=== PATIENT | male | born 1990 | race Hispanic/Latino ===

== ENCOUNTER 2017-07-27 13:02 | Emergency (ER) | payer SELFPAY ==
[2017-07-27] MEDS ORDERED: ORPHENADRINE CITRATE 30 MG/ML ML ONE (13:32)
[2017-07-27] MEDS ORDERED: KETOROLAC TROMETHAMINE 30MG/ML ONE (13:32)
[2017-07-27] MEDS ORDERED: DEXAMETHASONE SOD PHOSPHATE 10MG/ML 1ML VIAL ONE (13:32)
== END 2017-07-27 14:48 | disposition home or self-care (01) ==
LOC: EDH 13:02
DX: M54.5 Low back pain (principal); Z72.0 Tobacco use
CPT/HCPCS: 96372 ×3; 99284; J1100; J1885; J2360

== ENCOUNTER 2018-04-26 00:15 | Emergency (ER) | payer SELFPAY ==
[2018-04-26] MEDS ORDERED: KETOROLAC TROMETHAMINE 60 MG/2 ML VIAL ONE (01:52)
[2018-04-26] MEDS ORDERED: DEXAMETHASONE SOD PHOSPHATE 10MG/ML 1ML VIAL ONE (01:52)
== END 2018-04-26 02:13 | disposition home or self-care (01) ==
LOC: EDH 00:15
DX: M77.11 Lateral epicondylitis, right elbow (principal)
CPT/HCPCS: 96372 ×2; 99283; J1100; J1885

== ENCOUNTER 2018-12-20 10:57 | Emergency (ER) | payer OTHER ==
[2018-12-20] MEDS ORDERED: SODIUM CHLORIDE 0.9% 1000ML 1,000 ML IV ONE ×2 (11:30→12:16)
[2018-12-20] MEDS ORDERED: DEXAMETHASONE SOD PHOSPHATE 10MG/ML 1ML VIAL ONE (11:32)
[2018-12-20] MEDS ORDERED: KETOROLAC TROMETHAMINE 30MG/ML ONE (11:32)
[2018-12-20 11:56] LABS: CREATININE 1.5 mg/dL (0.5-1.5); POTASSIUM 4.2 mmol/L (3.5-5.1)
[2018-12-20 12:33] LABS: RAPID GROUP A STREP POSITIVE (NEGATIVE)
[2018-12-20 12:55] LABS: BASOPHILS % (AUTO) 1.2 % (0.0-5.0); EOSINOPHILS % (AUTO) 1.5 % (0.0-8.0); HEMATOCRIT 54.7 % (42-54); LYMPHOCYTES % (AUTO) 11.1 % (21.0-51.0); MEAN CORPUSCULAR HEMOGLOBIN 32.8 pg (27.0-33.0); MEAN CORPUSCULAR HGB CONC 34.5 g/dL (32.0-36.0); MEAN CORPUSCULAR VOLUME 95.2 fL (79-99); MONOCYTES % (AUTO) 9.9 % (3.0-13.0); NEUTROPHILS % (AUTO) 76.3 % (40.0-77.0); NUCLEATED RED BLOOD CELLS 0.1 % (0.0-0.19); PLATELET COUNT (AUTO) 258 K/uL (130-400); RED BLOOD CELL COUNT(AUTO) 5.75 MIL/uL (4.50-6.20); RED CELL DISTRIBUTION WIDTH 13.6 % (11.0-15.5); WHITE BLOOD COUNT (AUTO) 13.6 K/uL (4.8-10.8)
[2018-12-20] MEDS ORDERED: CEFTRIAXONE SODIUM 1 GM ONE (13:04)
== END 2018-12-20 13:47 | disposition home or self-care (01) ==
LOC: EDH 10:57
DX: J02.0 Streptococcal pharyngitis (principal); E86.0 Dehydration; Z72.0 Tobacco use
CPT/HCPCS: 36415; 80048; 85025; 87804 ×2; 87880; 96361; 96374; 96375; 99284; J0696; J1100; J1885; J7030 ×2

== ENCOUNTER 2019-09-28 20:07 | Emergency (ER) | payer OTHER ==
[2019-09-28] MEDS ORDERED: ACETAMINOPHEN ELIXIR 650 MG/20.3 ML UDCUP ONE (20:34)
[2019-09-28 20:45] LABS: APPEARANCE,URINE Clear (CLEAR); BILIRUBIN,URINE Moderate (NEGATIVE); COLOR,URINE Dark Yellow (YELLOW); GLUCOSE, URINE (UA) Negative (NEGATIVE); KETONES,URINE Negative (NEGATIVE); LEUKOCYTE ESTERASE ,URINE Small (NEGATIVE); NITRATE,URINE Positive (NEGATIVE); OCCULT BLOOD,URINE Negative (NEGATIVE); PROTEIN,URINE POS 1+ mg/dL (NEGATIVE)
[2019-09-28 20:51] LABS: BACTERIA,URINE Few /HPF (None Seen); RBC,URINE 0-1 /HPF (0-1); SQUAMOUS EPITHELIAL CELL,UR Rare /HPF (0-2)
[2019-09-28] MEDS ORDERED: MORPHINE SULFATE 4 MG/1ML SYG ONE (20:52)
[2019-09-28] MEDS ORDERED: ONDANSETRON HCL 4 MG/2 ML VIAL ONE (20:52)
[2019-09-28] MEDS ORDERED: SODIUM CHLORIDE 0.9% 1000ML 1,000 ML IV ONE ×2 (20:53→21:31)
[2019-09-28 21:11] LABS: BASOPHILS % (AUTO) 0.5 % (0.0-5.0); EOSINOPHILS % (AUTO) 0.2 % (0.0-8.0); HEMATOCRIT 54.4 % (42-54); LYMPHOCYTES % (AUTO) 15.3 % (21.0-51.0); MEAN CORPUSCULAR HEMOGLOBIN 32.5 pg (27.0-33.0); MEAN CORPUSCULAR HGB CONC 35.5 g/dL (32.0-36.0); MEAN CORPUSCULAR VOLUME 91.7 fL (79-99); MONOCYTES % (AUTO) 9.2 % (3.0-13.0); NEUTROPHILS % (AUTO) 74.4 % (40.0-77.0); PLATELET COUNT (AUTO) 249 K/uL (130-400); RED BLOOD CELL COUNT(AUTO) 5.93 MIL/uL (4.50-6.20); RED CELL DISTRIBUTION WIDTH 13.1 % (11.0-15.5); WHITE BLOOD COUNT (AUTO) 17.9 K/uL (4.8-10.8)
[2019-09-28 21:49] LABS: ALBUMIN 4.1 g/dL (3.5-5.0); BILIRUBIN,TOTAL 1.1 mg/dL (0.2-1.0); CREATININE 2.4 mg/dL (0.5-1.5); TOTAL PROTEIN, SERUM 9.1 g/dL (6.0-8.3)
[2019-09-28] MEDS ORDERED: DEXAMETHASONE SOD PHOSPHATE 10MG/ML 1ML VIAL ONE (23:36)
[2019-09-28] MEDS ORDERED: CLINDAMYCIN 300 MG/D5W 50 ML 50 ML IV ONE (23:37)
== END 2019-09-29 00:50 | disposition home or self-care (01) ==
LOC: EDH 20:07
DX: N39.0 Urinary tract infection, site not specified (principal); J03.90 Acute tonsillitis, unspecified; Z72.0 Tobacco use
CPT/HCPCS: 36415; 70490; 80053; 81001; 85025; 87040 ×2; 87088; 96361; 96365; 96375; 99284; J1100; J2270; J2405; J3490; J7030 ×2

== ENCOUNTER 2019-10-12 11:22 | Emergency (ER) | payer SELFPAY ==
[2019-10-12] MEDS ORDERED: IBUPROFEN 800 MG TAB ONE (11:44)
[2019-10-12] MEDS ORDERED: TETANUS/DIPHTHERIA TOXOID [ADULT] 0.5 ML VIAL IM ONE (11:44)
[2019-10-12] MEDS ORDERED: OCTYL 2-CYANOACRYLATE 1 EACH TP ONE ×2 (12:15→12:17)
== END 2019-10-12 12:44 | disposition home or self-care (01) ==
LOC: EDH 11:22
DX: S61.213A Laceration without foreign body of left middle finger without damage to nail, initial encounter (principal); Z72.0 Tobacco use; X58.XXXA Exposure to other specified factors, initial encounter; Y93.89 Activity, other specified; Y92.89 Other specified places as the place of occurrence of the external cause; Y99.8 Other external cause status
CPT/HCPCS: 12001; 73140; 90471; 90714

== ENCOUNTER 2022-08-24 18:05 | Inpatient (IN) | payer OTHER ==
[~2022-08-24] VITALS: Ht 167.6 cm; Wt 103.6 kg
[2022-08-24 18:29] LABS: BASOPHILS % (AUTO) 0.6 % (0.0-5.0); EOSINOPHILS % (AUTO) 0.8 % (0.0-8.0); HEMATOCRIT 58.9 % (42-54); LYMPHOCYTES % (AUTO) 26.5 % (21.0-51.0); MEAN CORPUSCULAR HEMOGLOBIN 32.3 pg (27.0-33.0); MEAN CORPUSCULAR HGB CONC 35.8 g/dL (32.0-36.0); MEAN CORPUSCULAR VOLUME 90.1 fL (79-99); MONOCYTES % (AUTO) 10.9 % (3.0-13.0); NEUTROPHILS % (AUTO) 60.2 % (40.0-77.0); PLATELET COUNT (AUTO) 321 K/uL (130-400); RED BLOOD CELL COUNT(AUTO) 6.54 MIL/uL (4.50-6.20); RED CELL DISTRIBUTION WIDTH 13.7 % (11.0-15.5); WHITE BLOOD COUNT (AUTO) 15.5 K/uL (4.8-10.8)
[2022-08-24] MEDS ORDERED: FAMOTIDINE 20MG VIAL IV ONE (18:30)
[2022-08-24] MEDS ORDERED: ONDANSETRON 4MG INJ IVP ONE (18:30)
[2022-08-24] MEDS ORDERED: LACTATED RINGERS 1000ML 1,914 ML IV ONE (18:30)
[2022-08-24 18:57] LABS: POTASSIUM 3.6 mmol/L (3.5-5.1); TOTAL PROTEIN, SERUM 9.6 g/dL (6.0-8.3)
[2022-08-24] MEDS ORDERED: DEXTROSE 50%-WATER 50 ML DISP.SYRIN IV ONE ×2 (19:18→19:30)
[2022-08-24 19:57] LABS: APPEARANCE,URINE CLEAR (CLEAR); BILIRUBIN,URINE NEGATIVE (NEGATIVE); COLOR,URINE LIGHT-YELLOW (YELLOW); GLUCOSE, URINE (UA) 300 mg/dL (NEGATIVE); KETONES,URINE NEGATIVE (NEGATIVE); LEUKOCYTE ESTERASE ,URINE NEGATIVE Leu/uL (NEGATIVE); NITRATE,URINE NEGATIVE (NEGATIVE); OCCULT BLOOD,URINE SMALL (NEGATIVE); PH,URINE 5.5 (5.0-8.0); PROTEIN,URINE 30 mg/dL (NEGATIVE); UROBILINOGEN,URINE 0.2 mg/dL (0.2-1.0)
[2022-08-24 20:04] LABS: AMPHET/METH SCREEN,URINE NEGATIVE (NEGATIVE); BARBITURATE SCREEN, URINE NEGATIVE (NEGATIVE); BENZODIAZEPINES SCREEN,URINE NEGATIVE (NEGATIVE); CANNABINOID SCREEN,URINE NEGATIVE (NEGATIVE); COCAINE SCREEN,URINE POSITIVE (NEGATIVE); OPIATE SCREEN,URINE NEGATIVE (NEGATIVE); PHENCYCLIDINE SCREEN,URINE NEGATIVE (NEGATIVE)
[2022-08-24 20:25] LABS: BACTERIA,URINE RARE /HPF (None Seen); MUCUS,URINE RARE LPF (None Seen); SQUAMOUS EPITHELIAL CELL,UR RARE /HPF (0-2)
[2022-08-24] MEDS ORDERED: 0.9%NACL 1000ML 2,000 ML IV SCH (21:00)
[2022-08-24] MEDS ORDERED: GLUCAGON 1MG KIT 1 MG ML IM PRN (21:30)
[2022-08-24] MEDS ORDERED: DEXTROSE 50%-WATER 50 ML DISP.SYRIN IV PRN (21:30)
[2022-08-24] MEDS ORDERED: NITROGLYCERIN 0.4 MG SL TAB SL PRN (22:00)
[2022-08-24] MEDS ORDERED: ONDANSETRON 4MG INJ IV PRN (22:00)
[2022-08-24] MEDS ORDERED: ACETAMINOPHEN 325 MG TAB PO PRN ×2 (22:00)
[2022-08-24] MEDS ORDERED: 0.9%NACL 1000ML 1,000 ML IV SCH ×2 (22:00)
[2022-08-24 22:31] LABS: HEMOGLOBIN A1C 5.1 % (4.0-6.0); INR 0.97 (0.85-1.15); PROTHROMBIN TIME 11.3 SEC (9.6-11.6)
[2022-08-24 22:32] LABS: PARTIAL THROMBOPLASTIN TIME 38.4 SEC (26.3-35.5)
[2022-08-24 23:45] VITALS: BP 111/64
[2022-08-25 00:41] LABS: HEMATOCRIT 51.2 % (42-54)
[2022-08-25 01:10] LABS: ALBUMIN 3.9 g/dL (3.5-5.0); CREATININE 2.1 mg/dL (0.5-1.5); POTASSIUM 4.1 mmol/L (3.5-5.1)
[2022-08-25] MEDS: 0.9%NACL 1000ML 1,000 ML IV SCH ×3 (02:00→14:37)
[2022-08-25 04:00] VITALS: BP 106/61
[2022-08-25 06:30] LABS: BASOPHILS % (AUTO) 0.5 % (0.0-5.0); EOSINOPHILS % (AUTO) 1.5 % (0.0-8.0); HEMATOCRIT 49.1 % (42-54); LYMPHOCYTES % (AUTO) 33.8 % (21.0-51.0); MEAN CORPUSCULAR HEMOGLOBIN 33.4 pg (27.0-33.0); MEAN CORPUSCULAR HGB CONC 36.5 g/dL (32.0-36.0); MEAN CORPUSCULAR VOLUME 91.6 fL (79-99); MONOCYTES % (AUTO) 13.3 % (3.0-13.0); NEUTROPHILS % (AUTO) 50.2 % (40.0-77.0); PLATELET COUNT (AUTO) 269 K/uL (130-400); RED BLOOD CELL COUNT(AUTO) 5.36 MIL/uL (4.50-6.20); RED CELL DISTRIBUTION WIDTH 13.2 % (11.0-15.5); WHITE BLOOD COUNT (AUTO) 10.2 K/uL (4.8-10.8)
[2022-08-25 08:00] VITALS: BP 111/65
[2022-08-25 08:45] LABS: ALBUMIN 3.6 g/dL (3.5-5.0); CREATININE 1.8 mg/dL (0.5-1.5); MAGNESIUM 1.8 mg/dL (1.80-2.40); POTASSIUM 4.2 mmol/L (3.5-5.1)
[2022-08-25 08:59] LABS: TOTAL PROTEIN, SERUM 7.1 g/dL (6.0-8.3)
[2022-08-25] MEDS: FAMOTIDINE 20MG TAB PO SCH (09:44)
[2022-08-25] MEDS: ENOXAPARIN SODIUM 30 MG/0.3 ML SQ SCH (09:45)
[2022-08-25 11:52] VITALS: BP 120/66
[2022-08-25] MEDS ORDERED: MAGNESIUM 2GM PREMIX 50ML 50 ML IV PRN (15:00)
[2022-08-25] MEDS ORDERED: POTASSIUM CHLORIDE 10MEQ/100ML 100 ML IV PRN (15:00)
[2022-08-25] MEDS: MAGNESIUM 2GM PREMIX 50ML 50 ML IV PRN (15:03)
[2022-08-25 16:00] VITALS: BP 112/67
[2022-08-25 20:00] VITALS: BP 130/70
[2022-08-26] VITALS: BP 109/58
[2022-08-26] MEDS: 0.9%NACL 1000ML 1,000 ML IV SCH ×3 (02:35→17:16)
[2022-08-26 04:00] VITALS: BP 129/71
[2022-08-26 04:11] LABS: BASOPHILS % (AUTO) 0.5 % (0.0-5.0); HEMATOCRIT 45.8 % (42-54); LYMPHOCYTES % (AUTO) 33.7 % (21.0-51.0); MEAN CORPUSCULAR HEMOGLOBIN 31.9 pg (27.0-33.0); MEAN CORPUSCULAR HGB CONC 35.2 g/dL (32.0-36.0); MEAN CORPUSCULAR VOLUME 90.9 fL (79-99); MONOCYTES % (AUTO) 13.1 % (3.0-13.0); NEUTROPHILS % (AUTO) 51.2 % (40.0-77.0); PLATELET COUNT (AUTO) 233 K/uL (130-400); RED BLOOD CELL COUNT(AUTO) 5.04 MIL/uL (4.50-6.20); RED CELL DISTRIBUTION WIDTH 13.2 % (11.0-15.5); WHITE BLOOD COUNT (AUTO) 10.2 K/uL (4.8-10.8)
[2022-08-26 04:36] LABS: ALBUMIN 3.4 g/dL (3.5-5.0); MAGNESIUM 1.4 mg/dL (1.80-2.40); POTASSIUM 4.3 mmol/L (3.5-5.1); TOTAL PROTEIN, SERUM 6.6 g/dL (6.0-8.3)
[2022-08-26] MEDS: MAGNESIUM 2GM PREMIX 50ML 50 ML IV PRN (05:49)
[2022-08-26 08:00] VITALS: BP 110/50
[2022-08-26] MEDS: ENOXAPARIN SODIUM 30 MG/0.3 ML SQ SCH (09:44)
[2022-08-26] MEDS ORDERED: CEFTRIAXONE 1G VIAL IVPB SCH (11:30)
[2022-08-26] MEDS ORDERED: VANCOMYCIN PROTOCOL PER PHARMACY IV SCH (11:30)
[2022-08-26 12:00] VITALS: BP 139/84
[2022-08-26] MEDS ORDERED: VANCOMYCIN 2GM/500 ML BAG 500 ML IV ONE (12:00)
[2022-08-26 16:00] VITALS: BP 110/62
[2022-08-26 20:00] VITALS: BP 117/64
[2022-08-26] MEDS ORDERED: VANCOMYCIN 1.25 GM/250 ML BAG 250 ML IV ONE (22:00)
[2022-08-27] VITALS (7 sets, daily range): BP systolic 106–117; BP diastolic 49–76
[2022-08-27] MEDS: 0.9%NACL 1000ML 1,000 ML IV SCH ×2 (02:27→10:00)
[2022-08-27 07:29] LABS: BASOPHILS % (AUTO) 0.3 % (0.0-5.0); EOSINOPHILS % (AUTO) 1.2 % (0.0-8.0); HEMATOCRIT 45.4 % (42-54); LYMPHOCYTES % (AUTO) 28.6 % (21.0-51.0); MEAN CORPUSCULAR HEMOGLOBIN 32.5 pg (27.0-33.0); MEAN CORPUSCULAR HGB CONC 34.8 g/dL (32.0-36.0); MEAN CORPUSCULAR VOLUME 93.4 fL (79-99); MONOCYTES % (AUTO) 10.1 % (3.0-13.0); NEUTROPHILS % (AUTO) 59.4 % (40.0-77.0); PLATELET COUNT (AUTO) 214 K/uL (130-400); RED BLOOD CELL COUNT(AUTO) 4.86 MIL/uL (4.50-6.20); RED CELL DISTRIBUTION WIDTH 13.2 % (11.0-15.5); WHITE BLOOD COUNT (AUTO) 10.4 K/uL (4.8-10.8)
[2022-08-27 07:45] LABS: ALBUMIN 3.2 g/dL (3.5-5.0); CREATININE 0.9 mg/dL (0.5-1.5); TOTAL PROTEIN, SERUM 6.2 g/dL (6.0-8.3)
[2022-08-27] MEDS: FAMOTIDINE 20MG TAB PO SCH (07:45)
[2022-08-27] MEDS: ENOXAPARIN SODIUM 30 MG/0.3 ML SQ SCH (07:46)
[2022-08-27] MEDS: VANCOMYCIN 1.5 GM/250 ML BAG 250 ML IV SCH ×2 (11:47→20:28)
[2022-08-27] MEDS ORDERED: KCL 20 MEQ ERTAB PO PRN (16:30)
[2022-08-27] MEDS ORDERED: POTASSIUM CHLORIDE 20MEQ/100ML 100 ML IV PRN (16:30)
[2022-08-28 04:34] VITALS: BP 116/65
[2022-08-28 05:14] LABS: CREATININE 1.1 mg/dL (0.5-1.5); POTASSIUM 3.4 mmol/L (3.5-5.1)
[2022-08-28 05:31] LABS: BASOPHILS % (AUTO) 0.2 % (0.0-5.0); HEMATOCRIT 45.6 % (42-54); LYMPHOCYTES % (AUTO) 26.8 % (21.0-51.0); MEAN CORPUSCULAR HEMOGLOBIN 32.5 pg (27.0-33.0); MEAN CORPUSCULAR HGB CONC 34.9 g/dL (32.0-36.0); MEAN CORPUSCULAR VOLUME 93.3 fL (79-99); MONOCYTES % (AUTO) 7.5 % (3.0-13.0); NEUTROPHILS % (AUTO) 60.8 % (40.0-77.0); PLATELET COUNT (AUTO) 246 K/uL (130-400); RED BLOOD CELL COUNT(AUTO) 4.89 MIL/uL (4.50-6.20); RED CELL DISTRIBUTION WIDTH 13.3 % (11.0-15.5); WHITE BLOOD COUNT (AUTO) 9.8 K/uL (4.8-10.8)
[2022-08-28 08:00] VITALS: BP 117/68
[2022-08-28 08:18] LABS: MAGNESIUM 1.3 mg/dL (1.80-2.40)
[2022-08-28] MEDS: VANCOMYCIN 1.5 GM/250 ML BAG 250 ML IV SCH (09:42)
[2022-08-28] MEDS: POTASSIUM CHLORIDE 10% ELIXIR 20 MEQ/15 ML UDCUP PO PRN ×2 (09:42→11:58)
[2022-08-28] MEDS: MAGNESIUM 2GM PREMIX 50ML 50 ML IV PRN (09:43)
[2022-08-28] MEDS: ENOXAPARIN SODIUM 30 MG/0.3 ML SQ SCH (09:44)
[2022-08-28 11:58] VITALS: BP 118/60
[2022-08-28] MEDS ORDERED: VANCOMYCIN 1.5 GM/250 ML BAG 250 ML IV SCH (14:00)
== END 2022-08-28 15:20 | disposition home or self-care (01) | DRG 683 ==
LOC: EDH 18:05 → EDHIP 18:06 → 4DH 23:45
PROVIDERS: ADMIT Hospitalist; ATTEND Hospitalist
DX: N17.9 Acute kidney failure, unspecified (principal); E87.1 Hypo-osmolality and hyponatremia; M62.82 Rhabdomyolysis; R78.81 Bacteremia; E11.22 Type 2 diabetes mellitus with diabetic chronic kidney disease; E86.0 Dehydration; N18.30 Chronic kidney disease, stage 3 unspecified; D72.829 Elevated white blood cell count, unspecified; E11.649 Type 2 diabetes mellitus with hypoglycemia without coma; E66.9 Obesity, unspecified; F14.90 Cocaine use, unspecified, uncomplicated; F17.210 Nicotine dependence, cigarettes, uncomplicated; B95.8 Unspecified staphylococcus as the cause of diseases classified elsewhere; I45.10 Unspecified right bundle-branch block; T67.5XXA Heat exhaustion, unspecified, initial encounter; X30.XXXA Exposure to excessive natural heat, initial encounter; Z68.35 Body mass index [BMI] 35.0-35.9, adult; Z79.899 Other long term (current) drug therapy
CPT/HCPCS: 36415; 71045; 80048; 80053; 80069; 80202; 80305; 81001; 82550; 82948; 83036; 83690; 83735; 83874; 84145; 84484; 85014; 85018; 85025; 85610; 85730; 86140; 87040; 87077; 87088; 87186; 93005; 93306; 99291; 99292; G0378; J1650; J2405; J3475; J3480; J3490; J7070

== ENCOUNTER 2022-09-26 00:47 | Emergency (ER) | payer OTHER ==
[~2022-09-26] VITALS: Ht 167.6 cm; Wt 100.2 kg
[2022-09-26 00:49] VITALS: BP 113/62; PULSE 87; RESP 20
== END 2022-09-26 04:19 | disposition left against medical advice (07) ==
LOC: EDH 00:47
DX: M54.50 Low back pain, unspecified (principal); Z53.21 Procedure and treatment not carried out due to patient leaving prior to being seen by health care provider
CPT/HCPCS: 99281